=== PATIENT | male | born 1975 | race African-American/Black ===

== ENCOUNTER 2022-03-31 08:42 | Emergency (ER) | payer MEDICAID ==
[~2022-03-31] VITALS: Ht 182.9 cm; Wt 89.0 kg
[2022-03-31 09:07] VITALS: BP 138/83
[2022-03-31 09:24] LABS: CHLORIDE 107 mEq/L (98-107)
[2022-03-31 09:26] LABS: BASOPHILS % 1.3 % (0.0-2.0); EOSINOPHILS % 3.4 % (0.0-5.0); HEMATOCRIT. 38.9 % (42.0-52.0); MEAN CORPUSCULAR VOLUME 81.2 fL (80.0-94.0); MEAN PLATELET VOLUME 8.2 fl (7.4-10.4); MONOCYTES % 10.1 % (2.0-8.0); NEUTROPHILS % 43.2 % (40.0-76.0); PLATELET 239 x1000/uL (130-400); RED BLOOD CELL COUNT 4.79 mill/uL (4.7-6.1); RED CELL DISTRIBUTION WIDTH 14.3 % (11.6-14.6)
[2022-03-31] MEDS ORDERED: TOPUD PO (10:27)
== END 2022-03-31 10:31 | disposition home or self-care (01) ==
LOC: ER 08:42
DX: R07.9 Chest pain, unspecified (principal)
CPT/HCPCS: 36415; 71045; 80053; 83880; 84484; 85025; 93005; 99285